=== PATIENT | female | born 1935 | race Caucasian/White ===

== ENCOUNTER 2017-08-16 13:09 | Inpatient (IN) | payer MEDICARE ==
[2017-08-16] MEDS: Sodium Chloride 0.9% 1000 ML 1,000 ML IV SCH (15:15)
--- NOTE | 2017-08-16 15:26 | XRAY ---
Exam: Two-view chest from 08/16/2017. Comparison: Two-view chest from 02/17/2016. Indication: Hyponatremia, weakness, dizziness. Findings: Upright PA and lateral chest films are submitted for evaluation. The heart size is normal. Mild tortuosity of both the ascending and descending thoracic aorta is seen. Surgical clips and midline sternal wires are seen consistent with prior CABG. The remainder the juanita and mediastinal structures appears unremarkable. The lungs are hyperinflated. The lateral film is slightly rotated. A couple calcified granulomas are seen within the left upper and midlung field. There is a thin oblique strand of scarring or subsegmental atelectasis within the right lung apex. No acute airspace infiltrates, vascular congestion, pneumothorax, or pleural fluid is seen. Mild lower dorsal kyphosis is seen. No acute osseous process is noted. Osteopenia and mild degenerative changes within the spine are seen. The degenerative changes are most pronounced within the upper lumbar spine. Lower dorsal kyphosis is seen. Impression: 1. There is hyperinflation of the lung price consistent with COPD. This is unchanged. Correlate clinically in this regard. 2. Status post CABG, no change. 3. No air space infiltrates, heart failure, or other acute cardiopulmonary disease is seen.
[2017-08-16 18:44] LABS: BLOOD UREA NITROGEN 9 mg/dL (9-20); CHLORIDE 86 mEq/L (98-107); Calcium 8.3 mg/dL (8.5-10.1); Carbon Dioxide 22.4 mEq/L (21-32); Creatinine 1 0.77 mg/dl (0.55-1.30); Glucose 224 MG/DL (70-110); Potassium 3.7 mEq/L (3.5-5.1); SODIUM 121 mEq/L (136-145)
[2017-08-16] MEDS ORDERED: NovoLOG Insulin SQ SCH (22:00)
[2017-08-16] MEDS: BUSPAR 5 MG PO SCH (23:22)
[2017-08-16] MEDS: NovoLOG Insulin SQ SCH (23:23)
[2017-08-17] MEDS: Sodium Chloride 0.9% 1000 ML 1,000 ML IV SCH ×3 (01:55→19:51)
[2017-08-17 06:21] LABS: BASOPHIL % 0.1 % (0.0-0.4); Basophil (Absolute #) 0.01 (0-0.4); Eosinophil % 0.1 % (0.00-5.0); Eosinophil (Absolute #) 0.01 (0-0.5); Granulocyte Absolute (ANC) 12.09 (1.4-6.9); Granulocytes % 85.2 % (36.0-66.0); Hematocrit 34.3 % (35-47); Hemoglobin 12.1 gm/dl (12.0-16.0); Lymphocyte (Absolute #) 1.18 (1.0-4.6); Lymphocytes % 8.3 % (24.0-44.0); Mean Cell Volume 89.1 fl (78-100); Mean Corpuscular Hemoglobin 31.4 pg (26-32); Mean Corpuscular Hgb Concent. 35.3 g/dl (32-36); Mean Platelet Volume 9.1 fl (6-9.5); Monocyte (Absolute #) 0.89 (0.0-1.3); Monocytes % 6.3 % (0.0-12.0); Platelet Count 500 K/mm3 (150-450); Red Blood Count 3.85 M/mm3 (4.1-5.4); Red Cell Distribution Width 12.1 % (11.5-14.0); White Blood Count 14.2 K/mm3 (4.0-10.5)
[2017-08-17 07:02] LABS: ALBUMIN 3.1 g/dL (3.4-5.0); ALKALINE PHOSPHATASE 23 U/L (46-116); ANION GAP 14.5 MEQ/L (5-15); BLOOD UREA NITROGEN 8 mg/dL (9-20); CHLORIDE 95 mEq/L (98-107); Calcium 8.4 mg/dL (8.5-10.1); Creatinine 1 0.66 mg/dl (0.55-1.30); Glucose 71 MG/DL (70-110); Potassium 4.6 mEq/L (3.5-5.1); SGOT/AST 29 U/L (15-37); SGPT/ALT 11 U/L (12-78); SODIUM 129 mEq/L (136-145); Total Protein 5.5 gm/dL (6.4-8.2)
[2017-08-17] MEDS: NovoLOG Insulin SQ SCH ×4 (08:33→22:28)
[2017-08-17] MEDS: ENOXAPARIN SODIUM SQ SCH (08:53)
[2017-08-17] MEDS: BUSPAR 5 MG PO SCH ×2 (08:53→22:04)
[2017-08-17] MEDS: ZOCOR 20MG PO SCH (09:32)
[2017-08-17] MEDS: Toprol Xl 50 MG PO SCH (09:33)
[2017-08-17] MEDS: Cozaar 50 MG PO SCH (09:33)
[2017-08-17] MEDS: ECOTRIN 81 MG PO SCH (09:33)
[2017-08-17] MEDS: Zetia 10 MG PO SCH (09:33)
[2017-08-17] MEDS: Klor Con 10 MEQ PO SCH (09:33)
[2017-08-17] MEDS ORDERED: NON-FORMULARY ITEM (Losartan Potassium [Losartan Potassium] 25 MG) PO SCH (10:00)
[2017-08-17] MEDS ORDERED: EZETIMIBE PO SCH (10:00)
[2017-08-17] MEDS ORDERED: SIMVASTATIN PO SCH (10:00)
--- NOTE | 2017-08-17 10:35 | PCM.NOTE ---
Date and Time: 08/17/17 1029 Subjective Assessment: Pt is 82 yo female pt of mine from [facility] with dementia who was admitted after being seen in office for weakness. Her labs showed severe hyponatremia (Na 113 ) so she was admitted and started on IV fluids. The sodium improved and this morning is 129. She is still feeling week. Oriented to place but not time ( knows it is "the 1999s"). - Review of Systems All Other Systems: Unable due to dementia Objective Exam General Appearance: no apparent distress, alert Neurologic Exam: cooperative, disoriented Skin Exam: normal color, warm, dry, No rash Respiratory Exam: normal breath sounds, lungs clear, No crackles/rales, No rhonchi, No wheezing Cardiovascular Exam: regular rate/rhythm, normal heart sounds, No murmur Gastrointestinal/Abdomen Exam: soft, normal bowel sounds, No tenderness, No distention, No mass, No guarding, No rebound Extremity Exam: normal inspection, No pedal edema, No swelling OBJECTIVE DATA Vital Signs: Vital Signs - 24 hr Temp Pulse Resp BP Pulse Ox 08/17/17 08:00 97.8 F 101 H 18 133/84 96 08/17/17 04:00 97.8 F 89 16 129/68 95 08/17/17 00:29 98.2 F 81 20 116/62 97 08/16/17 20:00 98.4 F 86 22 118/56 98 08/16/17 16:00 97.6 F 97 H 18 148/65 97 08/16/17 14:06 97.6 F 97 H 18 148/65 97 08/16/17 13:59 97.6 F 97 H 18 148/65 97 Pain Assessment - Last Documented Pain Intensity 0 Pain Scale Used 0-10 Pain Scale Intake and Output: Intake & Output 08/14/17 08/15/17 08/16/17 08/17/17 11:59 11:59 11:59 11:59 Intake Total 2509 Balance 2509 Weight 53.8 kg Lab Results: Accuchecks Date 08/17/17 Date 08/16/17 Date 08/16/17 Time 22:00 Time 16:30 Accucheck Value: 99 Accucheck Value: 209 Accucheck Value: 240 Lab Results-Last 24 Hours 08/16/17 08/17/17 08/17/17 Range/Units 18:24 05:00 05:02 WBC 14.2 H (4.0-10.5) K/mm3 RBC 3.85 L (4.1-5.4) M/mm3 Hgb 12.1 (12.0-16.0) gm/dl Hct 34.3 L (35-47) % MCV 89.1 (78-100) fl MCH 31.4 (26-32) pg MCHC 35.3 (32-36) g/dl RDW 12.1 (11.5-14.0) % Plt Count 500 H (150-450) K/mm3 MPV 9.1 (6-9.5) fl Gran % 85.2 H (36.0-66.0) % Lymphocytes % 8.3 L (24.0-44.0) % Monocytes % 6.3 (0.0-12.0) % Eosinophils % 0.1 (0.00-5.0) % Basophils % 0.1 (0.0-0.4) % Basophils # 0.01 (0-0.4) Sodium 121 L (136-145) mEq/L Potassium 3.7 (3.5-5.1) mEq/L Chloride 86 L (98-107) mEq/L Carbon Dioxide 22.4 (21-32) mEq/L Anion Gap 16.0 H (5-15) MEQ/L BUN 9 (9-20) mg/dL Creatinine 0.77 (0.55-1.30) mg/dl Estimated GFR > 60 ML/MIN Glucose 224 H (70-110) MG/DL Hemoglobin A1c 9.6 H (4.5-6.2) Calcium 8.3 L (8.5-10.1) mg/dL Total Bilirubin (0.2-1.0) mg/dL AST (15-37) U/L ALT (12-78) U/L Alkaline Phosphatase (46-116) U/L Serum Total Protein (6.4-8.2) gm/dL Albumin (3.4-5.0) g/dL 08/17/17 Range/Units 05:02 WBC (4.0-10.5) K/mm3 RBC (4.1-5.4) M/mm3 Hgb (12.0-16.0) gm/dl Hct (35-47) % MCV (78-100) fl MCH (26-32) pg MCHC (32-36) g/dl RDW (11.5-14.0) % Plt Count (150-450) K/mm3 MPV (6-9.5) fl Gran % (36.0-66.0) % Lymphocytes % (24.0-44.0) % Monocytes % (0.0-12.0) % Eosinophils % (0.00-5.0) % Basophils % (0.0-0.4) % Basophils # (0-0.4) Sodium 129 L (136-145) mEq/L Potassium 4.6 (3.5-5.1) mEq/L Chloride 95 L (98-107) mEq/L Carbon Dioxide 24.0 (21-32) mEq/L Anion Gap 14.5 (5-15) MEQ/L BUN 8 L (9-20) mg/dL Creatinine 0.66 (0.55-1.30) mg/dl Estimated GFR > 60 ML/MIN Glucose 71 (70-110) MG/DL Hemoglobin A1c (4.5-6.2) Calcium 8.4 L (8.5-10.1) mg/dL Total Bilirubin 0.60 (0.2-1.0) mg/dL AST 29 (15-37) U/L ALT 11 L (12-78) U/L Alkaline Phosphatase 23 L (46-116) U/L Serum Total Protein 5.5 L (6.4-8.2) gm/dL Albumin 3.1 L (3.4-5.0) g/dL Radiology Exams: Radiology Procedures Category Date Time Status CHEST 2 VIEWS (PA AND LAT) Routine Exams 08/16/17 14:15 Completed Assessment/Plan (1) Hyponatremia Current Visit: No Status: Acute Assessment & Plan: Improved on NS IV. Will recheck in the morning. I think horace related to her meds, particularly the SSRI and/or the bactrim - I have stopped both of these. Code(s): E87.1 - HYPO-OSMOLALITY AND HYPONATREMIA (2) Dementia Current Visit: Yes Status: Chronic Qualifiers: Dementia type: Alzheimer's disease Alzheimer's disease onset: unspecified onset Dementia behavioral disturbance: without behavioral disturbance Qualified Code(s): G30.9 - Alzheimer's disease, unspecified; F02.80 - Dementia in other diseases classified elsewhere without behavioral disturbance; F02.80 - Dementia in other diseases classified elsewhere without behavioral disturbance; F02.80 - Dementia in other diseases classified elsewhere without behavioral disturbance Code(s): F03.90 - UNSPECIFIED DEMENTIA WITHOUT BEHAVIORAL DISTURBANCE (3) Diabetes mellitus Current Visit: Yes Status: Chronic Qualifiers: Diabetes mellitus type: type 2 Diabetes mellitus complication status: with hypoglycemia Diabetes mellitus complication detail: without coma Diabetes mellitus termite technician insulin use: with termite technician use Qualified Code(s): E11.649 - Type 2 diabetes mellitus with hypoglycemia without coma; Z79.4 - longterm ( current) use of insulin; Z79.4 - intermediate designer (current) use of insulin; Z79.4 - longterm (current) use of insulin; Z79.4 - intermediate designer (current) use of insulin Assessment & Plan: Using patient's own sliding scale from home as she had a severe hypoglycemic episode in the past. She sees endocrinology for this reason. Code(s): E11.9 - TYPE 2 DIABETES MELLITUS WITHOUT COMPLICATIONS (4) HTN (hypertension) Current Visit: No Status: Chronic Qualifiers: Hypertension type: essential hypertension Qualified Code(s): I10 - Essential (primary) hypertension Code(s): I10 - ESSENTIAL (PRIMARY) HYPERTENSION
[2017-08-18 06:16] LABS: ANION GAP 12.5 MEQ/L (5-15); BLOOD UREA NITROGEN 4 mg/dL (9-20); CHLORIDE 99 mEq/L (98-107); Calcium 7.8 mg/dL (8.5-10.1); Carbon Dioxide 23.9 mEq/L (21-32); Creatinine 1 0.64 mg/dl (0.55-1.30); Glucose 128 MG/DL (70-110); Potassium 4.2 mEq/L (3.5-5.1); SODIUM 131 mEq/L (136-145)
[2017-08-18] MEDS: Sodium Chloride 0.9% 1000 ML 1,000 ML IV SCH ×2 (07:58→17:32)
[2017-08-18] MEDS: NovoLOG Insulin SQ SCH ×4 (08:51→21:12)
[2017-08-18] MEDS: BUSPAR 5 MG PO SCH ×2 (09:13→21:11)
[2017-08-18] MEDS: Cozaar 50 MG PO SCH (09:13)
[2017-08-18] MEDS: ECOTRIN 81 MG PO SCH (09:14)
[2017-08-18] MEDS: ENOXAPARIN SODIUM SQ SCH (09:14)
[2017-08-18] MEDS: ZOCOR 20MG PO SCH (09:14)
[2017-08-18] MEDS: Toprol Xl 50 MG PO SCH (09:14)
[2017-08-18] MEDS: Zetia 10 MG PO SCH (09:14)
[2017-08-18] MEDS: NORCO 5/325 MG PO PRN (12:30)
--- NOTE | 2017-08-18 13:49 | PCM.NOTE ---
Date and Time: 08/18/17 1345 Subjective Assessment: Pt states she is doing "just fine" but is not oriented. no complaints. Has been up walking with assist. - Review of Systems Constitutional: No Fever Musculoskeletal: No Fall Objective Exam General Appearance: no apparent distress, alert Neurologic Exam: cooperative, disoriented Skin Exam: normal color, warm, dry, No rash Respiratory Exam: normal breath sounds, lungs clear, No crackles/rales, No rhonchi, No wheezing Cardiovascular Exam: regular rate/rhythm, normal heart sounds, No murmur Extremity Exam: No pedal edema, No swelling OBJECTIVE DATA Vital Signs: Vital Signs - 24 hr Temp Pulse Resp BP Pulse Ox 08/18/17 12:00 97.6 F 79 18 132/63 93 L 08/18/17 08:00 97.7 F 88 18 131/65 98 08/18/17 04:00 97.6 F 97 H 20 152/73 96 08/18/17 00:20 98.4 F 82 20 127/64 97 08/17/17 20:00 97.9 F 91 H 18 134/63 99 08/17/17 16:00 97.7 F 93 H 18 139/68 96 Pain Assessment - Last Documented Pain Intensity 5 Pain Scale Used 0-10 Pain Scale Intake and Output: Intake & Output 08/16/17 08/17/17 08/18/17 08/19/17 11:59 11:59 11:59 11:59 Intake Total 2509 3445 Output Total 100 Balance 2509 3345 Weight 53.8 kg Lab Results: Accuchecks Date 08/17/17 Accucheck Value: 206 Accucheck Value: 143 Accucheck Value: 97 Accucheck Value: 139 Lab Results-Last 24 Hours 08/18/17 Range/Units 05:10 Sodium 131 L (136-145) mEq/L Potassium 4.2 (3.5-5.1) mEq/L Chloride 99 (98-107) mEq/L Carbon Dioxide 23.9 (21-32) mEq/L Anion Gap 12.5 (5-15) MEQ/L BUN 4 L (9-20) mg/dL Creatinine 0.64 (0.55-1.30) mg/dl Estimated GFR > 60 ML/MIN Glucose 128 H (70-110) MG/DL Calcium 7.8 L (8.5-10.1) mg/dL Radiology Exams: Radiology Procedures Category Date Time Status CHEST 2 VIEWS (PA AND LAT) Routine Exams 08/16/17 14:15 Completed Multi-Disciplinary Progress Notes: Multi-Disciplinary Progress Notes 08/17/17 14:42 Case Management Note by Rosa Plascencia THIS NURSE MISTAKENLY TOLD MD THAT PHYSICAL THERAPY HAD SEEN AND RELEASED THIS PATIENT, THIS WAS THE INCORRECT PATIENT. NOTIFIED PRIMARY NURSE AND ALSO MD NOTIFIED BY PRIMARY NURSE. FAMILY WOULD LIKE THIS PATIENT EVALUATED BY PHYSICAL THERAPY. Initialized on 08/17/17 14:42 - END OF NOTE 08/17/17 14:38 Case Management Note by Rosa Plascencia DISCHARGE PLAN REVIEWED WITH ELDEST SON AND , PATIENT WAS LIVING WITH YOUNGER SON IN HIS HOME IN [place] AT TIME OF PRESENT ILLNESS, THEY HAVE HAD GENERATIONS HHC THAT HAVE BEEN SUPPPOSED TO COME, BUT THERE WERE SOME MIS COMMUNICATIONS AND FAMILY DOES NOT WANT THEM BACK, THEY DO HOWEVER ASK FOR SOME KIND OF HHC, WITH PHYSICAL THERAPY IN THE HOME, A WALKER, MEALS DAILY. THEY ALSO NEED HELP FILLING OUT POA PAPERWORK AND ADVISED THAT THEY WOULD BE BACK ON SATURDAY, IF SOMEONE COULD HELP THEM AT THAT TIME. WILL CONTINUE TO MONITOR FOR ALL D/C NEEDS AND SERVICES. Initialized on 08/17/17 14:38 - END OF NOTE Assessment/Plan (1) Hyponatremia Current Visit: No Status: Acute Assessment & Plan: improved, Na is 131 today. recheck in a.m. stopped bactirm and SSRI. Code(s): E87.1 - HYPO-OSMOLALITY AND HYPONATREMIA (2) Dementia Current Visit: Yes Status: Chronic Qualifiers: Dementia type: Alzheimer's disease Alzheimer's disease onset: unspecified onset Dementia behavioral disturbance: without behavioral disturbance Qualified Code(s): G30.9 - Alzheimer's disease, unspecified; F02.80 - Dementia in other diseases classified elsewhere without behavioral disturbance; F02.80 - Dementia in other diseases classified elsewhere without behavioral disturbance; F02.80 - Dementia in other diseases classified elsewhere without behavioral disturbance Code(s): F03.90 - UNSPECIFIED DEMENTIA WITHOUT BEHAVIORAL DISTURBANCE (3) Diabetes mellitus Current Visit: Yes Status: Chronic Qualifiers: Diabetes mellitus type: type 2 Diabetes mellitus complication status: with hypoglycemia Diabetes mellitus complication detail: without coma Diabetes mellitus intermediate project manager insulin use: with senior care use Qualified Code(s): E11.649 - Type 2 diabetes mellitus with hypoglycemia without coma; Z79.4 - group home ( current) use of insulin; Z79.4 - exterminator helper termite (current) use of insulin; Z79.4 - exterminator helper termite (current) use of insulin; Z79.4 - exterminator helper termite (current) use of insulin Code(s): E11.9 - TYPE 2 DIABETES MELLITUS WITHOUT COMPLICATIONS (4) HTN (hypertension) Current Visit: No Status: Chronic Qualifiers: Hypertension type: essential hypertension Qualified Code(s): I10 - Essential (primary) hypertension Code(s): I10 - ESSENTIAL (PRIMARY) HYPERTENSION (5) Muscular deconditioning Current Visit: Yes Status: Acute Assessment & Plan: May need rehap; PT to eval on saturday. Code(s): R29.898 - OTH SYMPTOMS AND SIGNS INVOLVING THE MUSCULOSKELETAL SYSTEM
[2017-08-19 06:53] LABS: ANION GAP 13.7 MEQ/L (5-15); BLOOD UREA NITROGEN 4 mg/dL (9-20); CHLORIDE 97 mEq/L (98-107); Calcium 7.6 mg/dL (8.5-10.1); Carbon Dioxide 22.7 mEq/L (21-32); Glucose 148 MG/DL (70-110); Potassium 3.2 mEq/L (3.5-5.1); SODIUM 130 mEq/L (136-145)
[2017-08-19 07:46] VITALS: PULSE 78
[2017-08-19] MEDS: NovoLOG Insulin SQ SCH ×2 (08:11→12:01)
[2017-08-19] MEDS ORDERED: Klor Con 10 MEQ PO ONE (08:25)
--- NOTE | 2017-08-19 08:27 | PCM.DS ---
Discharge Summary Date of Admission: 08/16/17 13:29 Admitting Physician: DALE STEWART Primary Care Provider: DALE STEWART Allergies Allergies No Known Drug Allergies Allergy (Unverified 02/17/16 14:12) Hospital Summary - Hospital Course Hospital Course: Pt came to see me in office with weakness, had a fall, labs revealed hyponatremia (113) and she was admitted directly. She has continued to have some weakness but her sodium has increased nicely. She was on an SSRI and bactrim, both of which could cause hyponatremia and they were stopped. She is tolerating po. Pleasantly disoriented. She has been complaining of R knee pain; there is bruising on her L knee. She has been up out of bed with assistance. - Vitals & Intake/Output Vital Signs: Vital Signs Temperature 98 F 08/19/17 07:45 Pulse Rate 78 08/19/17 07:45 Respiratory Rate 18 08/19/17 07:45 Blood Pressure 118/60 08/19/17 07:45 O2 Sat by Pulse Oximetry 97 08/19/17 07:45 Intake & Output: Intake & Output 08/16/17 08/17/17 08/18/17 08/19/17 11:59 11:59 11:59 11:59 Intake Total 2509 3445 580 Output Total 100 975 Balance 2509 3345 -395 Weight 53.8 kg - Lab Result Diagrams: 08/17/17 05:02 08/19/17 06:08 Lab Results-Last 24 Hrs: Accuchecks Date 08/18/17 Time 22:00 Accucheck Value: 138 Accucheck Value: 97 Accucheck Value: 206 Lab Results-Last 24 Hours 08/19/17 Range/Units 06:08 Sodium 130 L (136-145) mEq/L Potassium 3.2 L (3.5-5.1) mEq/L Chloride 97 L (98-107) mEq/L Carbon Dioxide 22.7 (21-32) mEq/L Anion Gap 13.7 (5-15) MEQ/L BUN 4 L (9-20) mg/dL Creatinine 0.60 (0.55-1.30) mg/dl Estimated GFR > 60 ML/MIN Glucose 148 H (70-110) MG/DL Calcium 7.6 L (8.5-10.1) mg/dL Micro Results-Entire Visit: Accuchecks Date 08/18/17 Time 22:00 Accucheck Value: 138 Accucheck Value: 97 Accucheck Value: 206 - Procedures and Test Procedures and Tests throughout Hospitalization: Therapy Orders & Screens 08/18/17 13:49 PT Eval & Treat ( Order) ROUTINE Reason for Eval:: gen weakness Diagnosis: Hyponatremia,Weakness Discharge Exam General Appearance: no apparent distress, alert Neurologic Exam: cooperative, normal mood/affect Skin Exam: normal color, warm, dry, other (healing bruises on forehead), No rash Final Diagnosis/Problem List - Final Discharge Diagnosis/Problem (1) Hyponatremia Current Visit: No Status: Acute Assessment & Plan: improved; 130 now. (2) Dementia Current Visit: Yes Status: Chronic (3) Diabetes mellitus Current Visit: Yes Status: Chronic (4) HTN (hypertension) Current Visit: No Status: Chronic Assessment & Plan: BP have been stable here, although a little on the low side for the past 24 hours (110s diastolic). (5) Muscular deconditioning Current Visit: Yes Status: Acute Assessment & Plan: PT to eval pt today. She may well need rehab before returning to home. (6) Thrombophilia Current Visit: Yes Status: Acute Assessment & Plan: recheck today - Discharge Disposition: Home, Self-Care Condition: Stable Prescriptions: No Action Potassium Chloride 10 Meq Tab* [Klor Con 10 MEQ] 10 meq PO UD Furosemide 20 mg [Lasix 20 mg] 20 mg PO UD Ferrous Sulfate 325 mg [Feosol 325 mg] 325 mg PO DAILY Ezetimibe/Simvastatin [Vytorin 10-40 mg Tablet] 1 each PO DAILY Liraglutide [Victoza 2-Blake] 1.2 mg SQ DAILY Smz/Tmp Ds Tablet [Bactrim Ds Tablet] 1 mg PO DAILY Fluoxetine HCl 20 mg [Prozac 20 MG] 20 mg PO DAILY Aspirin EC 81 mg [Ecotrin 81 mg] 81 mg PO DAILY Donepezil HCl 10 mg [Aricept 10 MG] 10 mg PO DAILY Losartan Potassium 25 mg PO DAILY Metoprolol Succinate 50 mg [Toprol Xl 50 MG] 50 mg PO DAILY Buspirone HCl [Buspar] 10 mg PO BID Insulin Aspart [NovoLOG Insulin] 1 unit SQ ACHS Follow up with: DALE STEWART [Primary Care Provider] - 1 Week
--- NOTE | 2017-08-19 09:08 | XRAY ---
Indication: Pain and edema. No known injury. Comparison: None 3 views of the right knee demonstrates mild osteopenia, tibial tuberosity spurring, large suprapatellar effusion, and mild/moderate tricompartmental degenerative changes greatest involving the lateral compartment. Surrounding heterotopic ossifications either degenerative versus old injury. Scattered vascular calcifications. No acute fracture, dislocation, or suspicious bony lesions.
[2017-08-19 09:18] LABS: BASOPHIL % 0.1 % (0.0-0.4); Basophil (Absolute #) 0.01 (0-0.4); Eosinophil % 0.5 % (0.00-5.0); Eosinophil (Absolute #) 0.05 (0-0.5); Granulocyte Absolute (ANC) 8.52 (1.4-6.9); Granulocytes % 79.4 % (36.0-66.0); Hematocrit 31.4 % (35-47); Hemoglobin 10.6 gm/dl (12.0-16.0); Lymphocyte (Absolute #) 1.18 (1.0-4.6); Mean Cell Volume 91.8 fl (78-100); Mean Corpuscular Hgb Concent. 33.8 g/dl (32-36); Mean Platelet Volume 9.4 fl (6-9.5); Monocyte (Absolute #) 0.96 (0.0-1.3); Platelet Count 420 K/mm3 (150-450); Red Blood Count 3.42 M/mm3 (4.1-5.4); Red Cell Distribution Width 12.6 % (11.5-14.0); White Blood Count 10.7 K/mm3 (4.0-10.5)
[2017-08-19 09:26] LABS: Mean Corpuscular Hemoglobin 30.9 pg (26-32)
[2017-08-19] MEDS: Toprol Xl 50 MG PO SCH (10:11)
[2017-08-19] MEDS: Klor Con 10 MEQ PO SCH (10:12)
[2017-08-19] MEDS: Zetia 10 MG PO SCH (10:12)
[2017-08-19] MEDS: ZOCOR 20MG PO SCH (10:12)
[2017-08-19] MEDS: Cozaar 50 MG PO SCH (10:13)
[2017-08-19] MEDS: ECOTRIN 81 MG PO SCH (10:13)
[2017-08-19] MEDS: ENOXAPARIN SODIUM SQ SCH (10:14)
[2017-08-19] MEDS: BUSPAR 5 MG PO SCH (11:33)
[2017-08-19 12:59] VITALS: BP 118/64; O2SAT 96
--- NOTE | 2017-08-19 13:34 | PCM.DCORD ---
- Discharge Disposition: Skilled Care @ [facility] Condition: Stable Prescriptions: New Cephalexin [Keflex] 125 mg PO DAILY #30 capsule Continue Potassium Chloride 10 Meq Tab* [Klor Con 10 MEQ] 10 meq PO UD Furosemide 20 mg [Lasix 20 mg] 20 mg PO UD Ferrous Sulfate 325 mg [Feosol 325 mg] 325 mg PO DAILY Ezetimibe/Simvastatin [Vytorin 10-40 mg Tablet] 1 each PO DAILY Liraglutide [Victoza 2-Blake] 1.2 mg SQ DAILY Aspirin EC 81 mg [Ecotrin 81 mg] 81 mg PO DAILY Donepezil HCl 10 mg [Aricept 10 MG] 10 mg PO DAILY Losartan Potassium 25 mg PO DAILY Metoprolol Succinate 50 mg [Toprol Xl 50 MG] 50 mg PO DAILY Buspirone HCl [Buspar] 10 mg PO BID Insulin Aspart [NovoLOG Insulin] 1 unit SQ ACHS Discontinued Smz/Tmp Ds Tablet [Bactrim Ds Tablet] 1 mg PO DAILY Fluoxetine HCl 20 mg [Prozac 20 MG] 20 mg PO DAILY Follow up with: DALE STEWART [Primary Care Provider] - 1 Week
[2017-08-19] MEDS: NORCO 5/325 MG PO PRN (14:25)
== END 2017-08-19 15:39 | DRG 641 ==
LOC: EDSTATUS 13:20 → MED SURG 13:29
PROVIDERS: ADMIT Family Medicine; ATTEND Family Medicine
DX: E87.1 Hypo-osmolality and hyponatremia (principal); D68.59 Other primary thrombophilia; F03.90 Unspecified dementia, unspecified severity, without behavioral disturbance, psychotic disturbance, mood disturbance, and anxiety; E11.649 Type 2 diabetes mellitus with hypoglycemia without coma; Z79.4 Long term (current) use of insulin; I10 Essential (primary) hypertension; Z79.899 Other long term (current) drug therapy
CPT/HCPCS: 36415; 71046; 73562; 80048; 80053; 82962; 83036; 85025; 87086; J1650; A9270-GY